=== PATIENT | male | born 1965 | race Caucasian/White ===

== ENCOUNTER 2025-05-22 20:39 | Emergency (ER) | payer BC ==
[~2025-05-22] VITALS: Ht 188 cm; Wt 117.9 kg
[~2025-05-22 20:39] MED LIST: ALBUTEROL SULF8.5 GM INH; HYDROCODON-ACE1 EA12 PO; LEVAQUIN500 MG PO; TESSALON PERLE100 MG PO
[2025-05-22 21:05] LABS: BASOPHILS % 1.3 % (0.0-1.0); EOSINOPHILS % 1.0 % (0.0-6.0); LYMPHOCYTES % 14.7 % (18.0-39.1); MONOCYTES % 5.2 % (4.4-11.3); NEUTROPHILS % 71.3 % (38.7-80.0); RED CELL DISTRIBUTION WIDTH 13.6 % (11.7-14.4)
[2025-05-22] MEDS: ONDANSETRON HCL 4 MG ORAL DISINTEGRATING TAB PO STA (21:16)
[2025-05-22] MEDS: SODIUM CHLORIDE 0.9% 1000ML 1,000 ML IV STA (21:17)
[2025-05-22] MEDS: ONDANSETRON HCL INJ 2MG/ML 2ML 2 MG/ML VIAL IV STA (21:17)
[2025-05-22] MEDS: KETOROLAC TROMETHAMINE 30 MG/ML VIAL IV STA (21:17)
[2025-05-22 21:29] LABS: EST GLOMERULAR FILTRATION RATE 90.0 ML/MIN (>=60)
[2025-05-22 22:29] LABS: LEUKOCYTE ESTERASE ,URINE NEGATIVE (NEGATIVE); PROTEIN,URINE DIPSTICK 2+ (NEGATIVE); URINE UROBILINOGEN 4.0 mg/dL (0.2 - 1)
[2025-05-22 23:29] LABS: CALCIUM OXALATE CRYSTALS,UR FEW (FEW); EPITHELIAL CELLS,URINE FEW /LPF; WBC,URINE (MAN) 0-5 /HPF (0-5)
[2025-05-22 23:31] LABS: EST GLOMERULAR FILTRATION RATE 100.0 ML/MIN (>=60)
[2025-05-22 23:35] VITALS: PULSE 76; RESP 15; TEMP 98.7
[2025-05-22 23:47] LABS: BASOPHILS % 1.1 % (0.0-1.0); EOSINOPHILS % 1.4 % (0.0-6.0); LYMPHOCYTES % 17.0 % (18.0-39.1); MONOCYTES % 5.8 % (4.4-11.3); NEUTROPHILS % 67.7 % (38.7-80.0); RED CELL DISTRIBUTION WIDTH 13.5 % (11.7-14.4)
[2025-05-23] MEDS ORDERED: CEPHALEXIN500 MG PO (00:05)
[2025-05-23 00:21] VITALS: BP 135/85; PULSE 83; RESP 20; TEMP 98.8; O2SAT 97
[2025-05-23 10:17] LABS: BAND NEUTROPHILS % (MANUAL) 2 %; EOSINOPHILS % (MANUAL) 1 % (0-7); LYMPHOCYTES % (MANUAL) 19 % (19-48); MONOCYTES % (MANUAL) 3 % (3.4-9.0); NEUTROPHILS % (MANUAL) 73 % (40-74); PROMYELOCYTES % (MANUAL) 1 % (0-0); REACTIVE LYMPHOCYTES 1
[2025-05-23 10:18] LABS: PLATELET ESTIMATE ADEQUATE; PLATELET MORPHOLOGY COMMENT NORMAL
== END 2025-05-23 00:15 | disposition home or self-care (01) ==
LOC: ER 20:42
DX: R00.2 Palpitations (principal); R10.9 Unspecified abdominal pain; N39.0 Urinary tract infection, site not specified; E80.7 Disorder of bilirubin metabolism, unspecified
CPT/HCPCS: 36415; 71046; 74176; 80053; 81001; 82248; 82550; 83690; 84484; 85025; 93005; 99284; J1885; J2405; J7030